=== PATIENT | male | born 1965 | race Caucasian/White ===

== ENCOUNTER 2017-04-29 08:37 | Emergency (ER) | payer OTHER ==
[~2017-04-29] VITALS: Ht 177.8 cm; Wt 134.3 kg
[~2017-04-29 08:37] MED LIST: ANTIVERT25 MG PO; ASPIR 8181 MG PO; AUGMENTIN 875875 MG PO; CLARITIN10 MG; FLEXERIL PO; FLOMAX PO; LEVOTHYROXINE0.05 MG; LOPRESSOR25 PO; MULTIVITAMINS; NORFLEX100 MG PO; OMEPRAZOLE; PERCOCET 5-3251 EACH PO; ROBITUSSIN100 MG/53 PO; SUDAFED PE10 M2 PO; TORADOL; ULORIC40 MG PO; ULORIC80 MG; VICODIN; ZOFRAN ODT4 MG PO; ZYRTEC
[2017-04-29] MEDS ORDERED: ALLOPURINOL 10100 M1 PO (09:01)
[2017-04-29] MEDS ORDERED: TRICOR145 MG PO (09:01)
[2017-04-29] MEDS ORDERED: AMITRIPTYLINE H25 M3 PO (09:03)
[2017-04-29 09:08] LABS: URINE BILIRUBIN NEGATIVE (Negative); URINE BLOOD 3+ (Negative); URINE CLARITY CLEAR; URINE COLOR YELLOW; URINE GLUCOSE-RANDOM NEGATIVE (Negative); URINE KETONES NEGATIVE (Negative); URINE LEUKOCYTES-REFLEX NEGATIVE (Negative); URINE NITRITE-REFLEX NEGATIVE (Negative); URINE PROTEIN TRACE (Negative); URINE SPECIFIC GRAVITY >= 1.030 (1.005-1.030); URINE UROBILINOGEN 0.2 E.U./dl (0.2-1.0)
[2017-04-29 09:13] LABS: SQUAMOUS 4-10 Moderate /LPF (0-3); URINE WBC-REFLEX 0-5 Rare /HPF (0-5)
[2017-04-29 09:14] LABS: BACTERIA-REFLEX 1-9 Few /HPF (None Seen); CALCIUM OXALATE 4-10 Moderate /LPF (None Seen); HYALINE CASTS 4-10 Moderate /LPF (None Seen); MUCUS None Seen strn/LPF (None Seen)
[2017-04-29 09:17] LABS: ABSOLUTE BASOPHILS 0.1 thou/uL (0.0-0.2); ABSOLUTE EOSINOPHILS 0.1 thou/uL (0.0-0.7); ABSOLUTE LYMPHOCYTES 1.9 thou/uL (0.8-5.3); ABSOLUTE MONOCYTES 0.6 thou/uL (0.0-1.2); ABSOLUTE NEUTROPHILS 11.2 thou/uL (1.6-8.1); BASOPHILS 0.5 %; EOSINOPHILS 0.5 %; HEMATOCRIT 42.2 % (42.0-52.0); HEMOGLOBIN 14.3 gm/dL (14.0-18.0); LYMPHOCYTES 13.6 %; MCHC 33.9 g/dL (28.0-37.0); MCV 85.6 fL (80.0-100.0); MONOCYTES 4.5 %; MPV 6.6 fl. (7.2-11.1); NUCLEATED RBCS 0 /100WBC; PLATELET COUNT* 343 thou/uL (150-400); POLYS 80.9 %; RBC 4.93 mil/uL (4.50-6.00); RDW-CV 12.6 % (10.5-14.5); WBC 13.8 thou/uL (4.0-11.0)
[2017-04-29 09:25] LABS: CALCIUM 9.6 mg/dL (8.5-10.1); CREATININE 1.9 mg/dL (0.6-1.3); POTASSIUM 3.8 mmol/L (3.5-5.1)
[2017-04-29 09:29] LABS: ALBUMIN 3.9 g/dL (3.4-5.0); TOTAL BILIRUBIN 0.3 mg/dL (<0.1-1.0)
[2017-04-29] MEDS ORDERED: NORCO 5-325 TA1 EACH PO (12:26)
[2017-04-29] MEDS ORDERED: FLOMAX0.4 MG PO (12:26)
[2017-04-29] MEDS ORDERED: TORADOL 10 MG T10 MG PO (12:26)
[2017-04-29 12:54] VITALS: BP 116/87
== END 2017-04-29 12:55 | disposition home or self-care (01) ==
LOC: M.ERS 08:37
PROVIDERS: Personal Emergency Response Attendant
DX: N28.1 Cyst of kidney, acquired (principal); N20.0 Calculus of kidney; F10.99 Alcohol use, unspecified with unspecified alcohol-induced disorder

== ENCOUNTER 2020-02-18 16:12 | Emergency (ER) | payer OTHER ==
[~2020-02-18] VITALS: Ht 177.8 cm; Wt 133.8 kg
[~2020-02-18 16:12] MED LIST changes: +ALLOPURINOL 10100 M1 PO; +AMITRIPTYLINE H25 M3 PO; +FLOMAX0.4 MG PO; +NORCO 5-325 TA1 EACH PO; +TORADOL 10 MG T10 MG PO; +TRICOR145 MG PO
[2020-02-18 16:46] LABS: ABSOLUTE BASOPHILS 0.1 thou/uL (0.0-0.2); ABSOLUTE EOSINOPHILS 0.3 thou/uL (0.0-0.7); ABSOLUTE LYMPHOCYTES 2.5 thou/uL (0.8-5.3); ABSOLUTE MONOCYTES 0.5 thou/uL (0.0-1.2); ABSOLUTE NEUTROPHILS 4.3 thou/uL (1.6-8.1); EOSINOPHILS 4.3 %; HEMATOCRIT 39.7 % (42.0-52.0); HEMOGLOBIN 12.9 gm/dL (14.0-18.0); LYMPHOCYTES 32.1 %; MCH 27.9 pg (26.0-34.0); MCHC 32.5 g/dL (28.0-37.0); MCV 85.7 fL (80.0-100.0); MONOCYTES 6.2 %; MPV 6.3 fl. (7.2-11.1); NUCLEATED RBCS 0 /100WBC; PLATELET COUNT* 333 thou/uL (150-400); POLYS 56.4 %; RBC 4.63 mil/uL (4.50-6.00); RDW-CV 13.2 % (10.5-14.5); WBC 7.7 thou/uL (4.0-11.0)
[2020-02-18 16:54] LABS: CALCIUM 8.7 mg/dL (8.5-10.1); CREATININE 0.9 mg/dL (0.6-1.3); POTASSIUM 4.1 mmol/L (3.5-5.1)
[2020-02-18 16:56] LABS: APTT 25.4 Seconds (25.0-31.3); INR 0.9; PROTIME 10.1 Seconds (9.20-11.50)
[2020-02-18 17:07] LABS: ALBUMIN 3.6 g/dL (3.4-5.0); CK-MB MASS 0.8 ng/mL (<0.5-3.6); MAGNESIUM 2.1 mg/dL (1.8-2.4); TOTAL BILIRUBIN 0.2 mg/dL (<0.1-1.0); TOTAL PROTEIN 7.7 g/dL (6.4-8.2)
[2020-02-18 19:24] VITALS: BP 166/90
--- NOTE | 2020-02-19 16:25 | EKG ---
[place] [address] ELECTROCARDIOGRAM REPORT Name: MIRANDA MIDDLETON Room: [facility]#: [id number] Admission: 02/18/20 Attend Phys: Discharge: 02/18/20 Date of : 65 Date of Service: 02/18/20 1615 Report #: [id number] THIS REPORT FOR: //name// [facility] ED Test Date: 2020-02-18 Test Time: 16:15:57 Pat Name: MIRANDA MIDDLETON Department: Room: Gender: [employer]: [facility] : 1965 Requested By: Marcelo Huston Order Number: [id number] MD: Edgar Crum Measurements Intervals [place] Rate: 79 P: -5 LA: 169 QRS: -90 QRSD: 116 T: 47 QT: 385 QTc: 442 Interpretive Statements Sinus rhythm Left anterior fascicular block ST elev, probable normal early repol pattern Compared to ECG 04/22/2016 20:21:22 Left anterior fascicular block now present ST (T wave) deviation still present Electronically Signed On 02-19-2020 16:25:20 GRAPHOTYPE OPERATOR by Edgar Crum [email or web address] <ELECTRONICALLY SIGNED> By: Edgar Crum MD, FACC 02/19/20 1625 1615 161 Edgar Crum MD, FACC /EPI
== END 2020-02-18 19:25 | disposition home or self-care (01) ==
LOC: M.ERS 16:12
PROVIDERS: Family Medicine
DX: R07.89 Other chest pain (principal); Z90.89 Acquired absence of other organs

== ENCOUNTER 2020-03-17 11:02 | Emergency (ER) | payer OTHER ==
[~2020-03-17] VITALS: Ht 177.8 cm; Wt 133.8 kg
[2020-03-17 12:00] LABS: ABSOLUTE BASOPHILS 0.1 thou/uL (0.0-0.2); ABSOLUTE EOSINOPHILS 0.3 thou/uL (0.0-0.7); ABSOLUTE LYMPHOCYTES 1.8 thou/uL (0.8-5.3); ABSOLUTE MONOCYTES 0.3 thou/uL (0.0-1.2); ABSOLUTE NEUTROPHILS 5.4 thou/uL (1.6-8.1); BASOPHILS 0.7 %; EOSINOPHILS 3.9 %; HEMATOCRIT 42.1 % (42.0-52.0); HEMOGLOBIN 13.8 gm/dL (14.0-18.0); MCH 28.1 pg (26.0-34.0); MCHC 32.8 g/dL (28.0-37.0); MCV 85.8 fL (80.0-100.0); MONOCYTES 4.3 %; MPV 6.6 fl. (7.2-11.1); NUCLEATED RBCS 0 /100WBC; PLATELET COUNT* 322 thou/uL (150-400); POLYS 68.1 %; RBC 4.91 mil/uL (4.50-6.00); RDW-CV 13.6 % (10.5-14.5); WBC 7.9 thou/uL (4.0-11.0)
[2020-03-17 12:22] LABS: CALCIUM 8.6 mg/dL (8.5-10.1); CREATININE 1.1 mg/dL (0.6-1.3); POTASSIUM 3.9 mmol/L (3.5-5.1)
[2020-03-17 12:36] LABS: ALBUMIN 3.7 g/dL (3.4-5.0); TOTAL BILIRUBIN 0.3 mg/dL (<0.1-1.0); TOTAL PROTEIN 7.7 g/dL (6.4-8.2)
[2020-03-17 13:16] VITALS: BP 146/78
== END 2020-03-17 13:17 | disposition home or self-care (01) ==
LOC: M.ERS 11:02
PROVIDERS: Emergency Medicine Emergency Medical Services
DX: S06.0X0A Concussion without loss of consciousness, initial encounter (principal); R11.2 Nausea with vomiting, unspecified; Z79.82 Long term (current) use of aspirin; Z79.899 Other long term (current) drug therapy; Z98.890 Other specified postprocedural states; W10.8XXA Fall (on) (from) other stairs and steps, initial encounter; Y93.89 Activity, other specified; Y92.89 Other specified places as the place of occurrence of the external cause; Y99.9 Unspecified external cause status